=== PATIENT | female | born 1985 | race African-American/Black ===

== ENCOUNTER 2016-11-10 10:39 | Emergency (ER) | payer OTHER ==
[~2016-11-10] VITALS: Ht 165.1 cm; Wt 56.7 kg
[~2016-11-10 10:39] MED LIST: KEFLEX500 MG PO; PRENATAL COMPL1 EACH PO
[2016-11-10 10:42] VITALS: BP 112/68
[2016-11-10 11:00] LABS: URINE BILIRUBIN NEGATIVE (Negative); URINE BLOOD NEGATIVE (Negative); URINE COLOR YELLOW; URINE GLUCOSE-RANDOM* NEGATIVE (Negative); URINE KETONES NEGATIVE (Negative); URINE NITRITE NEGATIVE (Negative); URINE PROTEIN (DIPSTICK) NEGATIVE (Negative)
[2016-11-10] MEDS ORDERED: [UNRECOGNIZED DRUG - OTHER] PO (11:00)
[2016-11-10 11:43] LABS: CASTS None Seen /LPF (None Seen); CRYSTALS None Seen /LPF (None Seen); SQUAMOUS >10 Many /LPF (0-3)
[2016-11-10 11:44] LABS: BACTERIA 1-9 Few /HPF (None Seen); URINE RBC 0-2 Rare /HPF (0-2); URINE WBC 0-5 Rare /HPF (0-5)
[2016-11-11 14:09] LABS: CHLAMYDIA TRACHOMATIS-PCR Negative (Negative); NEISSERIA GONORRHEA-PCR Negative (Negative)
== END 2016-11-10 12:22 | disposition home or self-care (01) ==
LOC: ER 10:39
PROVIDERS: Nurse Practitioner
DX: N89.8 Other specified noninflammatory disorders of vagina (principal); R30.0 Dysuria; F10.99 Alcohol use, unspecified with unspecified alcohol-induced disorder